=== PATIENT | male | born 1960 | race American Indian/Alaskan Native ===

== ENCOUNTER 2016-10-04 21:54 | Emergency (ER) | payer OTHER ==
[2016-10-04] MEDS ORDERED: Acetaminophen/HYDROcodone 325-5 MG Tab PO ONE ×2 (22:15→22:40)
--- NOTE | 2016-10-04 22:21 | EDM.PDOC ---
ED HPI GENERAL MEDICAL PROBLEM - General Chief Complaint: General Stated Complaint: PAIN Time Seen by Provider: 10/04/16 22:10 Source of Information: Reports: Patient History Limitations: Reports: Other (No access to clinic records) - History of Present Illness INITIAL COMMENTS - FREE TEXT/NARRATIVE: 56 yo male here with a one week duration of illness. Started as body aches and later chills/fever/cough. Cough has been non-productive. No SOB. Went to the clinic yesterday and had a CXR and was started on Levaquin. Is taking Aleve, but is not getting relief from his body aches so comes to the ER tonight. Did not have a flu shot last fall/winter. Onset Date: 09/28/16 Duration: Day(s): Location: Reports: generalized Quality: Reports: Ache Severity: moderate Improves with: Reports: None Worsens with: Reports: None Context: Reports: Other (? pneumonia) Associated Symptoms: Reports: cough. 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, Other medication(s) (Levaquin) whole body Pain Score (Numeric/FACES): 7 - Related Data Allergies Allergy/AdvReac Type Severity Reaction Status Date / Time No Known Allergies Allergy Verified 10/04/16 22:04 Home Meds: Home Meds Acetaminophen/HYDROcodone [Reading 325-5 MG] 1 - 2 tab PO Q6H PRN #7 tab 10/04/16 [Rx] Levofloxacin 500 mg PO DAILY 10/04/16 [History] Pseudoephedrine HCl [Sudafed] 30 mg PO DAILY 10/04/16 [History] Social & Family History - Tobacco Use Smoking Status *Q: Heavy Tobacco Smoker Years of Tobacco use: 35 - Alcohol Use Days Per Week of Alcohol Use: 0 - Recreational Drug Use Recreational Drug Use: No ED ROS GENERAL - Review of Systems Review Of Systems: See Below Constitutional: Reports: malaise HEENT: Reports: Rhinitis Respiratory: Reports: Cough. Denies: Shortness of Breath, Wheezing, Pleuritic Chest Pain, Sputum, Hemoptysis Cardiovascular: Reports: No symptoms Endocrine: Reports: no symptoms GI/Abdominal: Reports: No symptoms : Reports: no symptoms Musculoskeletal: Reports: no symptoms Skin: Reports: no symptoms Neurological: Reports: No Symptoms Psychiatric: Reports: No symptoms Hematologic/Lymphatic: Reports: no symptoms ED EXAM, GENERAL - Physical Exam Exam: See Below Exam Limited By: No limitations General Appearance: alert, WD/WN, no apparent distress Eye Exam: bilateral eye: normal inspection, PERRL Ears: normal external exam, normal canal, hearing grossly normal, normal TMs Ear Exam: bilateral ear: auricle normal, canal normal, TM normal Nose: normal inspection, normal mucosa, no blood Throat/Mouth: Normal inspection, Normal lips, Normal teeth, Normal oropharynx, Normal voice, No airway compromise Head: atraumatic, normocephalic Neck: normal inspection, supple, non-tender, full range of motion Respiratory/Chest: no respiratory distress, lungs clear, normal breath sounds, no accessory muscle use Cardiovascular: regular rate, rhythm, no edema GI/Abdominal: Normal Bowel Sounds, Soft, Non-Tender, No Distention Back Exam: normal inspection Extremities: normal inspection, normal range of motion, non-tender, no pedal edema Neurological: alert, oriented, CN II-XII intact, normal cognition, normal gait Psychiatric: normal affect, normal mood Skin Exam: Warm, Dry, Intact, Normal color, No rash Lymphatic: no adenopathy Course - Vital Signs Text/Narrative:: Reading 1 po Last Recorded V/S: Last Vital Signs Temp 36.9 C 10/04/16 21:55 Pulse 85 10/04/16 21:55 Resp 14 10/04/16 21:55 BP 123/84 10/04/16 21:55 Pulse Ox 97 10/04/16 21:55 - Orders/Labs/Meds Meds: Medications Discontinued Medications Generic Name Dose Route Start Last Admin Trade Name Erickq PRN Reason Stop Dose Admin Hydrocodone Bitart/Acetaminophen 1 tab 10/04/16 22:15 10/04/16 22:25 Reading 325-5 Mg PO 10/04/16 22:16 1 tab ONETIME ONE Administration Departure - Departure Time of Disposition: 22:42 Disposition: Home, Self-Care 01 Condition: good Clinical Impression: Body aches - Discharge Information Prescriptions: Acetaminophen/HYDROcodone [Reading 325-5 MG] 1 - 2 tab PO Q6H PRN #7 tab PRN Reason: Pain Referrals: Enoch Quiroga MD [Primary Care Provider] - Forms: ED Department Discharge Care Plan Goals: Drink ample fluids. Continue your Levaquin. See your doctor for recheck before the weekend. Take Reading for pain relief as directed. Aleve dosing is 2 every 12 hrs with food.
[2016-10-04 22:45] VITALS: BP 133/87
== END 2016-10-04 22:45 | disposition home or self-care (01) ==
LOC: FB.ED 21:54
DX: R52 Pain, unspecified (principal); F17.200 Nicotine dependence, unspecified, uncomplicated
CPT/HCPCS: 87804; 99283; A9270

== ENCOUNTER 2022-03-24 06:46 | Emergency (ER) | payer BC, OTHER ==
[2022-03-24 07:04] VITALS: BP 157/107; PULSE 93
[2022-03-24] MEDS ORDERED: fentaNYL 100 MCG/2 ML SDV IVPUSH ONE ×2 (07:31→09:03)
[2022-03-24] MEDS ORDERED: Sodium Chloride 0.9% 10 ML Syringe FLUSH PRN (08:03)
[2022-03-24] MEDS ORDERED: Ondansetron 4 MG/2 ML SDV IVPUSH ONE (09:17)
== END 2022-03-24 11:35 | disposition home or self-care (01) ==
LOC: FB.ED 06:46
DX: M46.1 Sacroiliitis, not elsewhere classified (principal); M16.6 Other bilateral secondary osteoarthritis of hip; M43.17 Spondylolisthesis, lumbosacral region; E11.9 Type 2 diabetes mellitus without complications
CPT/HCPCS: 72192; 96374; 96375; 96376; 99283; J2405; J3010; J3490